=== PATIENT | female | born 1960 | race Caucasian/White ===

== ENCOUNTER 2020-04-26 10:14 | Outpatient (REF) | payer OTHER, SELFPAY ==
--- NOTE | 2020-04-26 | MM_ITS ---
EXAMINATION: MM SCREENING DIGITAL BREAST TOMOSYNTHESIS, BILATERAL CLINICAL INFORMATION: Screening. Asymptomatic. The lifetime risk of breast cancer based on the Tyrer-Cuzick Model is 10%. COMPARISON: Mammography: 03/09/2019, 10/08/2017 TECHNIQUE: Digital breast tomosynthesis is performed in both the craniocaudal and mediolateral oblique views along with computer-aided detection (CAD). Synthesized 2D images are generated from the tomosynthesis. FINDINGS: There are scattered areas of fibroglandular density (ACR BI-RADS breast composition Category b). There are no significant masses, abnormal calcifications, or other abnormalities. There are dermal calcifications at the bilateral posterior medial breasts. MM/MM tomosynthesis screening BI IMPRESSION: No mammographic evidence of malignancy. ASSESSMENT: BI-RADS 2: Benign RECOMMENDATION: Routine annual mammography screening. This patient's information was entered into a reminder system with a target due date for their next mammogram.
== END 2020-04-26 10:15 | disposition home or self-care (01) ==
LOC: HO.MAMMO 10:14
PROVIDERS: Visit Provider Internal Medicine
DX: Z12.31 Encounter for screening mammogram for malignant neoplasm of breast (principal)
CPT/HCPCS: 77063; 77067

== ENCOUNTER 2021-06-27 16:20 | Outpatient (REF) | payer OTHER, SELFPAY ==
--- NOTE | ~2021-06-27 | MM_ITS ---
EXAMINATION: MM SCREENING DIGITAL BREAST TOMOSYNTHESIS, BILATERAL CLINICAL INFORMATION: Screening. Asymptomatic. The lifetime risk of breast cancer based on the Tyrer-Cuzick Model is 9%. COMPARISON: Mammography: 04/26/2020, 03/09/2019, 10/18/2017 TECHNIQUE: Digital breast tomosynthesis is performed in both the craniocaudal and mediolateral oblique views along with computer-aided detection (CAD). Synthesized 2D images are generated from the tomosynthesis. Additional bilateral CC views are provided. FINDINGS: There are scattered areas of fibroglandular density (ACR BI-RADS breast composition Category b). There are no significant masses, abnormal calcifications, or other abnormalities. Parenchymal pattern is similar to prior studies. There is no developing density or architectural abnormality. The axilla and skin contours are unremarkable. No significant changes. MM/MM tomosynthesis screening BI IMPRESSION: No mammographic evidence of malignancy. ASSESSMENT: BI-RADS 1: Negative RECOMMENDATION: Routine annual mammography screening. This patient's information was entered into a reminder system with a target due date for their next mammogram.
== END 2021-06-27 16:21 | disposition home or self-care (01) ==
LOC: HO.MAMMO 16:20
PROVIDERS: Visit Provider Internal Medicine
DX: Z12.31 Encounter for screening mammogram for malignant neoplasm of breast (principal)
CPT/HCPCS: 77063; 77067

== ENCOUNTER 2022-09-20 06:32 | Outpatient (REF) | payer OTHER, SELFPAY ==
[2022-09-20 06:44] LABS: MANUAL DIFF FLAG NO
[2022-09-20 07:33] LABS: Eosinophils Absolute Auto 0.2 X10*3/uL (0.0-0.4); Eosinophils Percent Auto 5.4 % (0-4); Hematocrit 36.6 % (37.0-47.0); Hemoglobin 12.3 g/dl (12.0-16.0); Imm Gran Abs Auto 0.02 X10*3/uL (0.00-0.03); Imm Gran Pct Auto 0.5 % (0.0-0.4); Lymphocytes Absolute Auto 1.7 X10*3/uL (1.2-4.9); Lymphocytes Percent Auto 41.6 % (20-40); Mean Corpuscular HGB Conc 33.6 g/dl (31.0-35.0); Mean Corpuscular Hemoglobin 30.4 pg (27.0-33.0); Mean Corpuscular Volume 90.6 fL (80.0-98.0); Mean Platelet Volume 9.2 fL (9.4-12.3); Monocytes Absolute Auto 0.5 X10*3/uL (0.1-1.2); Neutrophils Absolute Auto 1.7 x10*3/uL (2.0-8.3); Neutrophils Percent Auto 40.5 % (45-73); Platelet Count 334 X10*3/uL (160-400); Red Blood Count 4.04 X10*6/uL (4.20-5.50); Red Cell Distribution Width 12.9 % (11.0-16.0); White Blood Count 4.1 X10*3/uL (4.8-10.8)
[2022-09-20 08:06] LABS: Alanine Aminotransferase 32 U/L (0-31); Albumin Level 4.2 g/dL (3.5-5.0); Alkaline Phosphatase 89 U/L (39-117); Anion Gap 10 (12-20); Aspartate Amino Transferase 43 U/L (5-31); Bilirubin Total 0.5 mg/dL (0.0-1.0); Blood Urea Nitrogen 14 mg/dL (9-16); Calcium 9.4 mg/dL (8.4-10.2); Carbon Dioxide 28 mmol/L (22-29); Chloride 103 mmol/L (96-108); Cholesterol 226 mg/dL; Estimated Glomerular Filt Rate > 60; Glucose Random 91 mg/dL (60-115); HDL Cholesterol 95 mg/dL; LDL Cholesterol Calculated 124 mg/dl; Potassium 5.3 mmol/L (3.3-5.1); Sodium 136 mmol/L (135-145); Total Protein 7.1 g/dL (6.5-8.0); Triglycerides 38 mg/dL
== END 2022-09-20 06:33 | disposition home or self-care (01) ==
LOC: HO.LAB 06:32
PROVIDERS: PCP Internal Medicine; Visit Provider Physician Assistant
DX: Z00.00 Encounter for general adult medical examination without abnormal findings (principal)
CPT/HCPCS: 36415; 80053; 80061; 85025

== ENCOUNTER 2022-09-25 06:16 | Outpatient (REF) | payer OTHER, SELFPAY ==
[2022-09-25 08:41] LABS: Iron 97 mcg/dL (30-160); Percent Iron Saturation 37 % (15-50); Total Iron Binding Capacity 265 mcg/dL (228-428); Unsaturated Iron Binding 168 ug/dL
[2022-09-25 09:08] LABS: Ferritin 105 ng/mL (10-250); Folate 16.5 ng/mL (> or = 4.0); Vitamin B12 497 pg/mL (200-900)
== END 2022-09-25 06:17 | disposition home or self-care (01) ==
LOC: HO.LAB 06:16
PROVIDERS: Physician Assistant; PCP Internal Medicine; Visit Provider Internal Medicine
DX: D64.9 Anemia, unspecified (principal)
CPT/HCPCS: 36415; 82607; 82728; 82746; 83540

== ENCOUNTER 2022-10-11 07:16 | Outpatient (REF) | payer OTHER, SELFPAY ==
--- NOTE | ~2022-10-11 | MM_ITS ---
EXAMINATION: MM SCREENING DIGITAL BREAST TOMOSYNTHESIS, BILATERAL CLINICAL INFORMATION: Screening. Asymptomatic. The lifetime risk of breast cancer based on the Tyrer-Cuzick Model is 7%. COMPARISON: Mammography: June 25, 2021 and studies dating back to February 01, 2014 TECHNIQUE: Digital breast tomosynthesis is performed in both the craniocaudal and mediolateral oblique views along with computer-aided detection (CAD). Synthesized 2D images are generated from the tomosynthesis. FINDINGS: There are scattered areas of fibroglandular density (ACR BI-RADS breast composition Category b). There are no significant masses, abnormal calcifications, or other abnormalities. MM/MM tomosynthesis screening BI IMPRESSION: No significant changes from prior exam. ASSESSMENT: BI-RADS 1: Negative RECOMMENDATION: Routine annual mammography screening. This patient's information was entered into a reminder system with a target due date for their next mammogram.
== END 2022-10-11 07:17 | disposition home or self-care (01) ==
LOC: HO.MAMMO 07:16
PROVIDERS: PCP Internal Medicine; Visit Provider Internal Medicine
DX: Z12.31 Encounter for screening mammogram for malignant neoplasm of breast (principal)
CPT/HCPCS: 77063; 77067

== ENCOUNTER 2023-11-13 08:02 | Outpatient (REF) | payer OTHER, SELFPAY | END 2023-11-13 08:03 | disposition home or self-care (01) | LOC: HO.MAMMO 08:02 | PROVIDERS: PCP Internal Medicine; Visit Provider Internal Medicine | DX: Z12.31 Encounter for screening mammogram for malignant neoplasm of breast (principal) | CPT/HCPCS: 77063; 77067 ==

== ENCOUNTER → 2023-11-13 08:15 | Outpatient (BNV) | payer OTHER, SELFPAY | PROVIDERS: PCP Internal Medicine; Visit Provider Radiology Diagnostic Radiology | DX: Z12.31 Encounter for screening mammogram for malignant neoplasm of breast (principal) | CPT/HCPCS: 77063; 77067 ==

== ENCOUNTER 2024-04-08 06:28 | Outpatient (REF) | payer OTHER, SELFPAY ==
[2024-04-08 06:45] LABS: MANUAL DIFF FLAG NO
[2024-04-08 07:30] LABS: Basophils Percent Auto 0.9 % (0-2); Eosinophils Absolute Auto 0.4 X10*3/uL (0.0-0.4); Eosinophils Percent Auto 8.3 % (0-4); Hematocrit 38.6 % (37.0-47.0); Hemoglobin 12.9 g/dl (12.0-16.0); Imm Gran Abs Auto 0.01 X10*3/uL (0.00-0.03); Imm Gran Pct Auto 0.2 % (0.0-0.4); Lymphocytes Absolute Auto 1.8 X10*3/uL (1.2-4.9); Lymphocytes Percent Auto 41.3 % (20-40); Mean Corpuscular HGB Conc 33.4 g/dl (31.0-35.0); Mean Corpuscular Hemoglobin 30.2 pg (27.0-33.0); Mean Corpuscular Volume 90.4 fL (80.0-98.0); Mean Platelet Volume 9.4 fL (9.4-12.3); Monocytes Absolute Auto 0.4 X10*3/uL (0.1-1.2); Neutrophils Absolute Auto 1.8 x10*3/uL (2.0-8.3); Neutrophils Percent Auto 40.3 % (45-73); Platelet Count 345 X10*3/uL (160-400); Red Blood Count 4.27 X10*6/uL (4.20-5.50); Red Cell Distribution Width 12.8 % (11.0-16.0); White Blood Count 4.5 X10*3/uL (4.8-10.8)
[2024-04-08 07:38] LABS: Estimated Average Glucose 111 mg/dL; Hemoglobin A1C 126.6143 umol/L; Hemoglobin A1c % 5.5 % (<6.0); Total Hemoglobin (HGBA1C) 3443.9718 umol/L
[2024-04-08 07:58] LABS: Alanine Aminotransferase 50 U/L (0-31); Albumin Level 4.2 g/dL (3.5-5.0); Alkaline Phosphatase 107 U/L (39-117); Anion Gap 11 (12-20); Aspartate Amino Transferase 48 U/L (5-31); Bilirubin Total 0.4 mg/dL (0.0-1.0); Blood Urea Nitrogen 11 mg/dL (9-16); Calcium 9.3 mg/dL (8.4-10.2); Carbon Dioxide 26 mmol/L (22-29); Chloride 104 mmol/L (96-108); Cholesterol 217 mg/dL (<200); Estimated Glomerular Filt Rate > 60; Glucose Random 93 mg/dL (60-115); HDL Cholesterol 77 mg/dL (>40); LDL Cholesterol Calculated 126 mg/dL (<100); Potassium 4.2 mmol/L (3.3-5.1); Sodium 137 mmol/L (135-145); Total Protein 7.7 g/dL (6.5-8.0); Triglycerides 70 mg/dL (<150)
[2024-04-08 08:17] LABS: Free T4 (Free Thyroxine) 0.77 ng/dL (0.71-1.85); Thyroid Stimulating Hormone 2.93 uIU/mL (0.32-4.0); Vitamin D 25-OH Total 80.1 ng/mL (>30)
== END 2024-04-08 06:29 | disposition home or self-care (01) ==
LOC: HO.LAB 06:28
PROVIDERS: PCP Internal Medicine; Visit Provider Physician Assistant
DX: Z00.00 Encounter for general adult medical examination without abnormal findings (principal); Z13.1 Encounter for screening for diabetes mellitus
CPT/HCPCS: 36415; 80053; 80061; 82306; 83036; 84439; 84443; 85025

== ENCOUNTER 2024-12-29 07:29 | Outpatient (REF) | payer OTHER, SELFPAY ==
--- OUTSIDE RECORDS SUMMARY | 2024-12-29 07:31 | XMS_ITS | Data Portability ---
Author Organization [facility] Telehealth Patient Home Address [address] [place] [address] Assessment Encounter Date Assessment Date Assessment LastModified by Organization Details LastModified Time 09/29/2019 09/29/2019 discussed exercise habits, increasing strength resistance and cardio, watching her diet and excluding certain foods and following the mediterrenean diet [email or web address] Not available 09/29/2019 09:26:47 Plan of Treatment Reminders Order Date Submit Date Provider Last Modified By Organization Details Last Modified Time Details Appointments ANNUAL EXAM 2024 09:00A M ANTOINE OSWALD Not available Not available Not available Lab CMP, serum or plasma 2023 [facility], [address] [place] [address], [id number], 04/09/2024 11:53:04 CBC w/ auto diff 2023 024 [facility], [address] [place] [address], [id number], 04/07/2024 16:08:32 lipid panel, blood 2023 024 [facility], [address] [place] [address], [id number], 04/07/2024 16:08:32 vitamin D, 25-hydrox y, total, serum 2023 024 [facility], [address] [place] [address], [id number], 04/07/2024 16:08:32 TSH + free T4, serum 2023 024 [facility], [address] [place] [address], [id number], 04/07/2024 16:08:32 hemoglobi n A1c, QN, blood 2023 024 [facility], [address] [place] [address], [id number], 04/07/2024 16:08:32 CBC w/ auto diff 2022 023 [facility], [address] [place] [address], [id number], 09/19/2022 15:55:16 CMP, serum or plasma 2022 023 [facility], [address] [place] [address], [id number], 09/20/2022 12:40:21 lipid panel, blood 2022 023 [facility], [address] [place] [address], [id number], 09/19/2022 16:20:39 urinalysi s, dipstick 2019 020 [facility], [address] [facility], [address], [place], [address], 09/29/2019 09:26:49 CMP, serum or plasma 2019 020 [facility], [address] [place] [address], [id number], 09/29/2019 23:16:31 CBC w/ auto diff 2019 020 [facility], [address] [place] [address], [id number], 09/29/2019 23:16:31 lipid panel, blood 2019 020 [facility], [address] [place] [address], [place], [address], 09/29/2019 23:16:31 Referral None recorded. Procedures None recorded. Surgeries None recorded. Imaging None recorded. Medication Orders acyclovir 400 mg tablet 2023 024 [id number], [address] [facility], [place], [address], 04/07/2024 16:01:33 Patient TargetsNo targets recorded. Patient InstructionsNo instructions recorded. Reason for Referral None Reported. Results Created Date Observation Date Name Description Value Unit Range Abnormal Flag Note LastModifiedBy Organization Detail LastModifiedTime 09/29/19 20 09/29/2019 urina lysis , dipst ick Leukocytes Trace Not Available [address], [place], [address], 09/29/2019 09:04:18 09/29/19 20 09/29/2019 urina lysis , dipst ick Nitrite negati ve Not Available [address], [place], [address], 09/29/2019 09:04:18 09/29/19 20 09/29/2019 urina lysis , dipst ick Urobilinogen .2 Not Available [facility] [address], [place], [address], 09/29/2019 09:04:18 09/29/19 20 09/29/2019 urina lysis , dipst ick Protein Negati ve Not Available [address], [place], [address], 09/29/2019 09:04:18 09/29/19 20 09/29/2019 urina lysis , dipst ick pH 7.0 Not Available [facility] [address], [place], [address], 09/29/2019 09:04:18 09/29/19 20 09/29/2019 urina lysis , dipst ick Blood Modera te Not Available [facility] [address] [facility] [address], [place], [address], 09/29/2019 09:04:18 09/29/19 20 09/29/2019 urina lysis , dipst ick Specific Empire 1.005 Not Available [facility] [address] [address] [facility] [address], [place], [address], 09/29/2019 09:04:18 09/29/19 20 09/29/2019 urina lysis , dipst ick Ketone Negati ve Not Available [facility] [address], [place], [address], 09/29/2019 09:04:18 09/29/19 20 09/29/2019 urina lysis , dipst ick Bilirubin Negati ve Not Available [facility] [address], [place], [address], 09/29/2019 09:04:18 09/29/19 20 09/29/2019 urina lysis , dipst ick Glucose Negati ve Not Available [facility] [address], [place], [address], 09/29/2019 09:04:18 09/29/19 20 09/29/2019 urina lysis , dipst ick Appearance Clear Not Available [facility] [address], [place], [address], 09/29/2019 09:04:18 09/29/19 20 09/29/2019 urina lysis , dipst ick Color Yellow Not Available [facility] [address] [facility] [address], [place], [address], 09/29/2019 09:04:18 04/27/20 20 04/26/2020 MAMMO , diagn ostic , digit al, bilat eral No observ ation record ed. [email or web address] [address] [place], [address], 04/27/2020 09:44:56 06/28/19 22 06/27/2021 MAMMO , scree steven, digit al, bilat eral No observ ation record ed. [address] [place], [address], 06/28/2021 12:00:43 10/13/19 23 10/11/2022 MAMMO , scree steven, digit al, bilat eral No observ ation record ed. [address] [place], [address], 04/07/2024 15:45:02 12/10/19 24 11/13/2023 MAMMO , scree steven, digit al, bilat eral No observ ation record ed. [address] [place], [address], 04/07/2024 15:45:02 Result Notes None recorded. Problems Name Problem SNOMED Code Status Onset Date Resolution Date Notes Provider Name and Address Organization Details Recorded Time Anemia 482096121 Active 2022 ANTOINE OSWALD [address] [place] [address], [address], [facility] 3 15:41:34 Herpes labialis 2866853 Active 2023 ANTOINE OSWALD [address] [place] [address], [address], [facility] 4 15:51:26 Problem Notes None recorded. Medical Equipment None Reported. Allergies No known drug allergies Medications Name Sig Start Date Stop Date Status Note LastModified by Organization Details LastModified Time amoxicillin 500 mg capsule TAKE 1 CAPSULE BY MOUTH 3 TIMES A DAY FOR 8 DAYS 09/19 completed Not Available Not Available Not Available lysine 1,000 mg tablet Take by oral route. 2023 active Not Available Not Available Not Avai lable acyclovir 400 mg tablet TAKE 1 TABLET BY MOUTH TWICE A DAY DIRECTED 2024 active Not Available Not Available Not Avai lable triamcinolo ne acetonide 0.1 % topical cream 09/19 completed Not Available Not Available Not Available desonide 0.05 % lotion 09/28 completed Not Available Not Available Not Available metoprolol succinate ER 25 mg tablet,exte nded release 24 hr Take 1 tablet every day by oral route. 09/19 completed Not Available Not Available Not Available One Daily daily 09/19 completed Not Available Not Available Not Available Vitamin D3 TAKE ONE PO QD active Not Available Not Available No t Available Centrum active Not Available Not Avail able Not Available Shingrix (PF) 50 mcg/0.5 mL intramuscul ar suspension, kit 04/04 completed Not Available Not Available Not Available Fluzone [employer] (PF) 60 mcg (15 mcg x 4)/0.5 mL IM syringe 09/28 completed Not Available Not Available Not Available Estroven Complete Menopause Relief 4 mg tablet Take by oral route. 04/04 completed Not Available Not Available Not Available Fluzone Quad (PF) 60 mcg (15 mcg x 4)/0.5 mL IM syringe 04/04 completed Not Available Not Available Not Available BinaxNOW COVID-19 Ag Self Test kit TEST DIRECTED TODAY 09/19 completed Not Available Not Available Not Available Vitals Date Recorded Body height Body mass index (BMI) Body weight Heart rate Oxygen saturation Oxygen saturation in Arterial blood by Pulse oximetry Systolic And Diastolic Provider Name and Address Organization Details Last Updated DateTime 3 160.02 cm 6.2 kg/m2 55519.7 3 g 80 /min 98 % 98 % 118/64 mm[Hg] ANTOINE OSWALD [address] [place], [address] [place] [address] Internal [facility] 3 15:32:50 Date Recorded Body height Body mass index (BMI) Body weight Heart rate Oxygen saturation Oxygen saturation in Arterial blood by Pulse oximetry Systolic And Diastolic Provider Name and Address Organization Details Last Updated DateTime 0 158.75 cm 29 kg/m2 29263.0 9 g 90 /min 99 % 99 % 120/70 mm[Hg] Kristen Roland [facility] 0 09:08:04 Date Recorded Body height Heart rate Oxygen saturation Oxygen saturation in Arterial blood by Pulse oximetry Systolic And Diastolic Provider Name and Address Organization Details Last Updated DateTime 0 158.75 cm 72 /min 99 % 99 % 136/90 mm[Hg] ANTOINE OSWALD [address] [place], [address], [facility] 0 16:01:19 Date Recorded Body height Body mass index (BMI) Body weight Heart rate Oxygen saturation Oxygen saturation in Arterial blood by Pulse oximetry Systolic And Diastolic Provider Name and Address Organization Details Last Updated DateTime 4 160.02 cm 26.5 kg/m2 98403.0 6 g 87 /min 98 % 98 % 128/78 mm[Hg] Shanthi Ackerman [facility] 4 15:35:32 Social History Question Answer Notes LastModified by Flywheel Details LastModified Time Tobacco Smoking Status Former Smoker Kristen caldwell [facility] 09/29/2019 08:51:51 What Was The Date Of Your Most Recent Tobacco Screening? 04/07/2024 [email or web address] Information not available 04/07/2024 Sex: Unknown Functional Status Question Answer Note LastModified by Flywheel Details LastModified Time Do you or have you ever used any other forms of tobacco or nicotine? No [email or web address] Information not available 09/19/2022 What is your level of alcohol consumption? Moderate 1-2 glasses per day [email or web address] Information not available 09/29/2019 Mental Status None recorded. Family History Nothing Reported. Medical History No medical history recorded. Gynecological HistoryNo gynecological history recorded. Obstetrics History GPAL:G 0 P 0 0 0 0 Immunizations Vaccine Type Date Status Note Provider Nam e and Address Organization Details Recorded Time Influenza, split virus, quadrivalent, preservative 9 completed Kristen caldwell [facility] 09/29/2019 09:03:33 Past Encounters Encounter ID Performer Location Encounter Start Date Encounter Closed Date Diagnosis/Indication Diagnosis SNOMED-CT Code Diagnosis ICD10 Code Diagnosis Note [id number] Ranjan Turner [facility] [address] [facility] [address] 09/29/2019 08:57:25 09/29/2019 09:34:10 Adult health examination 384166616 Z00.00 Active or passive immunization 885327605 Z23 [id number] Ranjan Turner [facility] [address] [facility] [address] 04/04/2020 15:55:55 04/04/2020 16:26:25 Essential hypertension 66409903 I10 will monitor her on metoprolol Anxiety 59801923 F41.9 due to personal life stress with and daughter recently in hospital she has been having a lot of anxiety causing her stress to increase [id number] Ranjan Turner [facility] [address] [facility] [address],[place] [address] 09/19/2022 15:24:15 09/19/2022 16:30:15 Active or passive immunization 501253359 Z23 up to date Adult heal th examination 486115830 Z00.00 BP is excellent [id number] Ranjan Turner [facility] [address] [facility], [place] [address] 04/07/2024 15:08:27 04/07/2024 16:51:07 Active or passive immunization 303018377 Z23 up to date Adult heal th examination 865831217 Z00.00 BP is excellent Depression screening 171 470539 Z13.31 SCREENING NEGATIVE Herpes labialis 0046573 B00.1 will start suppressio n dose for patient given reoccurrin g Health Concerns Section Related Observation LastModified by Organization Detai ls LastModified Time None Recorded Concern Status LastModified by Organization Details LastModified Time None Recorded Advance Directives Directive None Recorded Payers Insurance Date Sequence Insurance Name Policy Number Policy Valadez Covered Member ID Valadez Member ID Guarantor Name 04/04/[address] [place] [address] [id number] Lainey Caro [id number] Lainey Caro Notes Date Note Type Note Provider Name a ga Address Organization Details Recorded Time 0 text/html Annual WellnessReported bypatient.Diet and Nutrition:healthy diet Fracture Risk:no history of fractures Physical Activity:good physical condition Additional Lifestyle Factors:no tobacco use; drinks alcohol (mild-moderate) (one glass of wine per night); former smoker - 30 years ago Depression Risk:no history of mood disorders Hearing:no loss of hearing Vision:no vision problems BP 120/70 which is excellent ANTOINE OSWALD [address] [place] [address], [address], [facility] 09/29/2019 09:28:18 0 text/html BP f/u the patient took her metoprolol 25 mg for her BP the patient reports that she has had some numbness in her face the patient reports her recorded BP readings: 115/78 133/94 128/88 102/72 105/78 138/92 will continue on metoprolol for the time being at 25 as her best reading were with the metoprolol on board will continue to monitor if dips to low she knows to call me facial numbness subsided with her BP coming back down will keep me updated no fever, no sob, no cough, no abdominal pain, no chest pain, no fatigue, no n/v/d ANTOINE OSWALD [address] [place] [address], [address], [facility] 04/04/2020 16:20:44 3 text/html Annual WellnessReported bypatient.Diet and Nutrition:healthy diet; discussed vitamin and supplement use; discussed portion control; discussed maintaining calcium balance; discussed diet improvement Fracture Risk:no history of fractures; no recent explained fracture; no sudden unexplained fractures; no previous musculoskeletal injuries Physical Activity:exercises on a regular basis; recent increase in physical activity; good physical condition; discussed weightbearing activities; discussed exercise habits Additional Lifestyle Factors:no tobacco use; drinks alcohol (mild-moderate) Depression Risk:never feels sad, empty, or tearful; no loss of interest in activities; no significant changes in weight; no sleep disturbances or insomnia; no agitation; no loss of energy; no feelings of worthlessness or guilt; no thoughts of suicide; no history of depression; no history of mood disorders Hearing:no loss of hearing Vision:no vision problems ANTOINE OSWALD [address] [place], [address], [facility] 09/19/2022 16:19:57 text/html Annual WellnessReported bypatient.Diet and Nutrition:healthy diet; discussed vitamin and supplement use; discussed portion control; discussed maintaining calcium balance; discussed diet improvement Fracture Risk:no history of fractures; no recent explained fracture; no sudden unexplained fractures; no previous musculoskeletal injuries Physical Activity:exercises on a regular basis; recent increase in physical activity; good physical condition; discussed weightbearing activities; discussed exercise habits Additional Lifestyle Factors:no tobacco use; drinks alcohol (mild-moderate) Depression Risk:never feels sad, empty, or tearful; no loss of interest in activities; no significant changes in weight; no sleep disturbances or insomnia; no agitation; no loss of energy; no feelings of worthlessness or guilt; no thoughts of suicide; no history of depression; no history of mood disorders Hearing:no loss of hearing Vision:no vision problems anemia: stabledoing well otherwise needs routine lab work ANTOINE OSWALD [address] [place], [address], [facility] 04/07/2024 16:13:13 OBGyn Episode No OBEpisode recorded.
== END 2024-12-29 07:30 | disposition home or self-care (01) ==
LOC: HO.MAMMO 07:29
PROVIDERS: PCP Internal Medicine; Visit Provider Internal Medicine
DX: Z12.31 Encounter for screening mammogram for malignant neoplasm of breast (principal)
CPT/HCPCS: 77063; 77067

== ENCOUNTER → 2024-12-29 07:30 | Outpatient (BNV) | payer OTHER, SELFPAY | PROVIDERS: PCP Internal Medicine; Visit Provider Internal Medicine | DX: Z12.31 Encounter for screening mammogram for malignant neoplasm of breast (principal) | CPT/HCPCS: 77063; 77067 ==

== ENCOUNTER 2025-04-01 12:44 | Outpatient (AMB) | payer OTHER, SELFPAY ==
--- NOTE | 2025-04-01 12:58 | A.OFFVIS_ITS ---
Vital Signs 04/01/25 13:06 Height 5 ft 3 in Weight 150 lb 1 oz BMI 26.6 BP 139/84 Blood Pressure Location Rt brachial Position Sitting Pulse 84 Intake Visit Reasons: 10 year colostomy screening Intake Note: Patient presents for 10 year recall colonoscopy. Pt c/o; denies rectal bleeding, pain, or constipation, last colonoscopy was over 10 years ago 05/2014. Supervisor Of Guidance And Testing Required: No Accompanied by: Self / Same As Patient Allergies No Known Allergies Allergy (Unverified 04/01/25 13:07) Medication List - Last Reconciled 04/01/25 by Dick Alberts MD [id number] K-lut 8 mg iron-400 mcg-50 mcg (Centrum Silver Women) 1 tab PO DAILY HPI HPI 10 year colostomy screening: Details: 64 year old female referred for colonoscopy screening. She says her last colonoscopy was about [address] Jon Felton. She says he had a small polyp at that time that was removed. She denies GI complaints. She does state that she had some changes in her bowel habits starting from last year when she was going a lot of stress. She says that this has resolved once she made some changes with her diet. She denies any family history of colon cancer. [facility] Medical History (Updated 04/01/25 @ 13:13 by Dick Alberts MD) Colon cancer screening Surgical History (Updated 04/01/25 @ 13:10 by JAVY Jaime) No pertinent past surgical history Social History (Updated 04/01/25 @ 13:10 by JAVY Jaime) Unable to assess alcohol history related to: Unknown Patient Tobacco Use Status: Tobacco use Unknown Review of Systems Const Denies chills and Denies fever(s) Card Denies chest pain, Denies dyspnea and Denies dyspnea on exertion Resp Denies cough, Denies dyspnea and Denies dyspnea on exertion GI Denies hematochezia and Denies change in bowel habits Denies hematuria Musc Denies back pain and Denies limited range of motion Neuro Denies focal weakness and Denies convulsions Psych Denies depression and Denies mood swings Physical Exam Vital Signs: Last Vital Signs Pulse 84 04/01/25 13:06 BP 139/84 04/01/25 13:06 BMI result Body Mass Index 26.6 Const General: comfortable and no acute distress Orientation/consciousness: patient oriented x3 Neck Neck: Yes no lymphadenopathy Resp Auscultation: clear to auscultation bilaterally Cardio Rhythm: regular rhythm GI Palpation (GI): Soft to palpation, nontender and no guarding Neuro General: patient oriented x3 Assessment & Plan Assessment & Plan (1) Colon cancer screening: Code(s): Z12.11 - Encounter for screening for malignant neoplasm of colon Category: Medical Plan: I explained to her the technique of colonoscopy for screening. I reviewed the risks including but not limited to bleeding and perforation, as well as the benefits and alternatives. She understands and agrees to proceed. Coding Level of Care Code New Pt Level 3 (48178) Diagnoses Colon cancer screening Z12.11
[2025-04-01 13:06] VITALS: BP 139/84; PULSE 84; BMI 26.6
--- OUTSIDE RECORDS SUMMARY | 2025-04-01 15:51 | XMS_ITS | Data Portability ---
Author Organization [facility] Telehealth Patient Home Address [address] [place] [address] Assessment Encounter Date Assessment Date Assessment LastModified [...] available Lab CMP, serum or plasma 2023 [facility], [address] [place] [address], [id number], 04/09/2024 11:53:04 CBC w/ auto diff 2023 024 [facility], [address] [place] [address], [id number], 04/07/2024 16:08:32 lipid panel, blood 2023 024 [facility], [address] [place] [address], [id number], 04/07/2024 16:08:32 vitamin D, 25-hydrox y, total, serum 2023 024 [facility], [address] [place] [address], [id number], 04/07/2024 16:08:32 TSH + free T4, serum 2023 024 [facility], [address] [place] [address], [id number], 04/07/2024 16:08:32 hemoglobi n A1c, QN, blood 2023 024 [facility], [address] [place] [address], [id number], 04/07/2024 16:08:32 CBC w/ auto diff 2022 023 [facility], [address] [place] [address], [id number], 09/19/2022 15:55:16 CMP, serum or plasma 2022 023 [facility], [address] [place] [address], [id number], 09/20/2022 12:40:21 lipid panel, blood 2022 023 [facility], [address] [place] [address], [id number], 09/19/2022 16:20:39 urinalysi s, dipstick 2019 020 [facility], [address] [facility], [address], [place], [address], 09/29/2019 09:26:49 CMP, serum or plasma 2019 020 [facility], [address] [place] [address], [id number], 09/29/2019 23:16:31 CBC w/ auto diff 2019 020 [facility], [address] [place] [address], [id number], 09/29/2019 23:16:31 lipid panel, blood 2019 020 [facility], [address] [place] [address], [place], [id number], 09/29/2019 23:16:31 Referral None recorded. Procedures None recorded. Surgeries None recorded. Imaging None recorded. Medication Orders acyclovir 400 mg tablet 2023 024 [id number], [address] [facility], [place], [address], 04/07/2024 16:01:33 Patient TargetsNo targets recorded. Patient InstructionsNo instructions recorded. Reason for Referral None Reported. Results Created Date Observation Date Name Description Value Unit Range Abnormal Flag Note LastModifiedBy Organization Detail LastModifiedTime 09/29/19 20 09/29/2019 urina lysis , dipst ick Leukocytes Trace Not Available [address], [place], [address], 09/29/2019 09:04:18 09/29/19 20 09/29/2019 urina lysis , dipst ick Nitrite negati ve Not Available [address], [place], [address], 09/29/2019 09:04:18 09/29/19 20 09/29/2019 urina lysis , dipst ick Urobilinogen .2 Not Available [facility] [address], [place], [address], 09/29/2019 09:04:18 09/29/19 20 09/29/2019 urina lysis , dipst ick Protein Negati ve Not Available [address], [place], [address], 09/29/2019 09:04:18 09/29/19 20 09/29/2019 urina lysis , dipst ick pH 7.0 Not Available [facility] [address], [place], [phone], 09/29/2019 09:04:18 09/29/19 20 09/29/2019 urina lysis , dipst ick Blood Modera te Not Available [facility] [address] [facility] [address], [place], [address], 09/29/2019 09:04:18 09/29/19 20 09/29/2019 urina lysis , dipst ick Specific [place] 1.005 Not Available [facility] [address], [place], [id number], 09/29/2019 09:04:18 09/29/19 20 09/29/2019 urina lysis , dipst ick Ketone Negati ve Not Available [facility] [address], [place], [id number], 09/29/2019 09:04:18 09/29/19 20 09/29/2019 urina lysis , dipst ick Bilirubin Negati ve Not Available [facility] [address], [place], [id number], 09/29/2019 09:04:18 09/29/19 20 09/29/2019 urina lysis , dipst ick Glucose Negati ve Not Available [facility] [address], [place], [address], 09/29/2019 09:04:18 09/29/19 20 09/29/2019 urina lysis , dipst ick Appearance Clear Not Available [facility] [address], [place], [address], 09/29/2019 09:04:18 09/29/19 20 09/29/2019 urina lysis , dipst ick Color Yellow Not Available [facility] [address] [address], [place], [address], 09/29/2019 09:04:18 04/27/20 20 04/26/2020 MAMMO , diagn ostic , digit al, bilat eral No observ ation record ed. [email or web address] [address] [place], [address], 04/27/2020 09:44:56 06/28/19 22 06/27/2021 MAMMO , scree steven, digit al, bilat eral No observ ation record ed. [address] [place], [address], 06/28/2021 12:00:43 10/13/19 23 10/11/2022 MAMMO , scree steven, digit al, bilat eral No observ ation record ed. [address] [place], [address], 04/07/2024 15:45:02 12/10/19 24 11/13/2023 MAMMO , scree steven, digit al, bilat eral No observ ation record ed. [address] [place], [address], 04/07/2024 15:45:02 01/06/20 25 12/29/2024 MAMMO , scree steven, digit al, bilat eral No observ ation record ed. [email or web address] [address] [place], [address], 01/05/2025 13:34:50 Result Notes None recorded. Problems Name Problem SNOMED Code Status Onset Date Resolution Date Notes Provider Name and Address Organization Details Recorded Time Anemia 062840572 Active 2022 ANTOINE OSWALD [address] [place], [address], [facility] [place], operated [facility] 15:41:34 Herpes labialis 8589245 Active 2023 ANTOINE OSWALD [address] [place], [address], [facility] [place], operated [facility] 4 15:51:26 Problem Notes None recorded. Procedures Surgical History Date Name Laterality Status Provider Name and Address Organization Details Recorded Time 5 Most Recent Mammogram completed Shanthi Ackerman [facility] 01/05/2025 13:34:28 Imaging Results None recorded. Procedure Notes None recorded. Medical Equipment None Reported. [...] Ag Self Test kit TEST DIRECTED TODAY 04/12 /2023 completed Not Available Not Available Not Available Vitals Date Recorded Body height Body mass index (BMI) Body weight Heart rate Oxygen saturation Oxygen saturation in Arterial blood by Pulse oximetry Systolic And Diastolic Provider Name and Address Organization Details Last Updated DateTime 3 160.02 cm 6.2 kg/m2 25162.7 3 g 80 /min 98 % 98 % 118/64 mm[Hg] ANTOINE OSWALD [address] [place], [address] [place] [address] 3 15:32:50 Date Recorded Body height Body mass index (BMI) Body weight Heart rate Oxygen saturation Oxygen saturation in Arterial blood by Pulse oximetry Systolic And Diastolic Provider Name and Address Organization Details Last Updated DateTime 0 158.75 cm 29 kg/m2 26403.0 9 g 90 /min 99 % 99 % 120/70 mm[Hg] Kristen Roland [facility] 0 09:08:04 Date Recorded Body height Heart rate Oxygen saturation Oxygen saturation in Arterial blood by Pulse oximetry Systolic And Diastolic Provider Name and Address Organization Details Last Updated DateTime 0 158.75 cm 72 /min 99 % 99 % 136/90 mm[Hg] ANTOINE OSWALD [address] [place], [address] [place] [address] 0 16:01:19 Date Recorded Body height Body mass index (BMI) Body weight Heart rate Oxygen saturation Oxygen saturation in Arterial blood by Pulse oximetry Systolic And Diastolic Provider Name and Address Organization Details Last Updated DateTime 4 160.02 cm 26.5 kg/m2 17158.0 6 g 87 /min 98 % 98 % 128/78 mm[Hg] Shanthi Ackerman [facility] 4 15:35:32 Social History Question Answer Notes LastModified by [employer] Details LastModified Time Tobacco Smoking Status Former Smoker Kristen Roland [facility] 09/29/2019 08:51:51 What Was The Date Of Your Most Recent Tobacco Screening? 04/07/2024 [email or web address] Information not available 04/07/2024 Sex: Unknown Functional Status Question Answer Note LastModified by Organizat ion Details LastModified Time Do you or have you ever used any other forms of tobacco or nicotine? No [email or web address] Information not available 09/19/2022 What is your level of alcohol consumption? Moderate 1-2 glasses per day [email or web address] Information not available 09/29/2019 Mental Status None recorded. Family History Nothing Reported. Medical History No medical history recorded. Gynecological History Statement/Question Response Most Recent Mammogram 12/29/2024 Obstetrics History GPAL:G 0 P 0 0 0 0 Immunizations Vaccine Type Date Status Note Provider Nam e and Address Organization Details Recorded Time Influenza, split virus, quadrivalent, preservative 9 completed Kristen Roland [facility] 09/29/2019 09:03:33 Past Encounters Encounter ID Performer Location Encounter Start Date Encounter Closed Date Diagnosis/Indication Diagnosis SNOMED-CT Code Diagnosis ICD10 Code Diagnosis IMO Codes Diagnosis Note [id number] Ranjan Turner [facility] [address] [facility] [place] [address] 09/29/2019 08:57:25 09/29/2019 09:34:10 Adult health examination 871510058 Z00.00 Active or passive immunization 205952843 Z23 [id number] Ranjan Turner [facility] [address] [facility] [place] [address] 04/04/2020 15:55:55 04/04/2020 16:26:25 Essential hypertension 59861933 I10 will monitor her on metoprolol Anxiety 12730678 F41.9 due to personal life stress with and daughter recently in hospital she has been having a lot of anxiety causing her stress to increase [id number] Ranjan Turner DO [facility] [address] [facility] [address] 09/19/2022 15:24:15 09/19/2022 16:30:15 Active or passive immunization 799709168 Z23 up to date Adult heal th examination 849395505 Z00.00 BP is excellent [id number] Ranjan Turner [facility] [address] [facility] [place] [address] 04/07/2024 15:08:27 04/07/2024 16:51:07 Active or passive immunization 677570454 Z23 up to date Adult heal th examination 544784249 Z00.00 BP is excellent Depression screening 171 822306 Z13.31 SCREENING NEGATIVE Herpes labialis 0788111 B00.1 will start suppressio n dose for patient given reoccurrin g Health Concerns Section Related Observation LastModified by Organization Detai ls LastModified Time None Recorded Concern Status LastModified by Organization Details LastModified Time None Recorded Advance Directives Directive None Recorded Payers Insurance Date Sequence Insurance Name Policy Number Policy Valadez Covered Member ID Valadez Member ID Guarantor Name 04/04/2024 1 [facility] [id number] Lainey Ramye Gordo [id number] Lainey Ramey Gordo Notes Date Note Type Note Provider Name a nd Address Organization Details Recorded Time 0 text/html Annual WellnessReported by PatientSocial/Behavio ral HistoryFor diet and nutrition, patient reportshealthy diet. For fracture risk, patient reportsno history of fractures. For physical activity, patient reportsgood physical condition. For additional lifestyle factors, patient reportsno tobacco useanddrinks alcohol (mild-moderate) (one glass of wine per night)(former smoker - 30 years ago).Mental Status:For depression risk, patient reportsno history of mood disorders.Functional AbilityFor hearing, patient reportsno loss of hearing. For vision, patient reportsno vision problems. BP 120/70 which is excellent ANTOINE OSWALD [address] [place] [address], [address], [facility] [place], operated [facility] 09/29/2019 09:28:18 0 text/html ROS as noted in the HPI BP f/u the patient took her metoprolol [...] pain, no fatigue, no n/v/d ANTOINE OSWALD [address] [place] [address], [address], [facility] [place], operated [facility] 04/04/2020 16:20:44 3 text/html Annual WellnessReported by PatientSocial/Behavio ral HistoryFor diet and nutrition, patient reportshealthy diet,discussed vitamin and supplement use,discussed portion control,discussed maintaining calcium balance, anddiscussed diet improvement. For fracture risk, patient reportsno history of fractures,no recent explained fracture,no sudden unexplained fractures, andno previous musculoskeletal injuries. For physical activity, patient reportsexercises on a regular basis,recent increase in physical activity,good physical condition,discussed weightbearing activities, anddiscussed exercise habits. For additional lifestyle factors, patient reportsno tobacco useanddrinks alcohol (mild-moderate).Menta l Status:For depression risk, patient reportsnever feels sad, empty, or tearful,no loss of interest in activities,no significant changes in weight,no sleep disturbances or insomnia,no agitation,no loss of energy,no feelings of worthlessness or guilt,no thoughts of suicide,no history of depression, andno history of mood disorders.Functional AbilityFor hearing, patient reportsno loss of hearing. For vision, patient reportsno vision problems. ANTOINE OSWALD [address] [place], [address], [facility] [place], operated [facility] 09/19/2022 16:19:57 4 text/html Annual WellnessReported by PatientSocial/Behavio ral HistoryFor diet and nutrition, patient reportshealthy diet,discussed vitamin and supplement use,discussed portion control,discussed maintaining calcium balance, anddiscussed diet improvement. For fracture risk, patient reportsno history of fractures,no recent explained fracture,no sudden unexplained fractures, andno previous musculoskeletal injuries. For physical activity, patient reportsexercises on a regular basis,recent increase in physical activity,good physical condition,discussed weightbearing activities, anddiscussed exercise habits. For additional lifestyle factors, patient reportsno tobacco useanddrinks alcohol (mild-moderate).Menta l Status:For depression risk, patient reportsnever feels sad, empty, or tearful,no loss of interest in activities,no significant changes in weight,no sleep disturbances or insomnia,no agitation,no loss of energy,no feelings of worthlessness or guilt,no thoughts of suicide,no history of depression, andno history of mood disorders.Functional AbilityFor hearing, patient reportsno loss of hearing. For vision, patient reportsno vision problems.ROS as noted in the HPI anemia: stabledoing well otherwise needs routine lab work ANTOINE OSWALD [address] [place] [address], [place], [address], [facility] 04/07/2024 16:13:13 OBGyn Episode No OBEpisode recorded.
== END 2025-04-01 13:22 | disposition home or self-care (01) ==
LOC: HO.HGS 12:45
PROVIDERS: PCP Internal Medicine; Visit Provider Surgery
DX: Z12.11 Encounter for screening for malignant neoplasm of colon (principal)
CPT/HCPCS: 99203

== ENCOUNTER 2025-04-23 05:55 | Day surgery (SDC) | payer OTHER, SELFPAY ==
--- OUTSIDE RECORDS SUMMARY | 2025-04-16 16:16 | XMS_ITS | Data Portability ---
Author Organization [facility], Telehealth Patient Home Address [address] [place] [address] Assessment Encounter Date Assessment Date Assessment LastModified [...] available Lab CMP, serum or plasma 2023 [facility], [address] [place] [address], [id number], 04/09/2024 11:53:04 CBC w/ auto diff 2023 024 [facility], [address] [place] [address], [id number], 04/07/2024 16:08:32 lipid panel, blood 2023 024 [facility], [address] [place] [address], [id number], 04/07/2024 16:08:32 vitamin D, 25-hydrox y, total, serum 2023 024 [facility], [address] [place] [address], [id number], 04/07/2024 16:08:32 TSH + free T4, serum 2023 024 [facility], [address] [place] [address], [id number], 04/07/2024 16:08:32 hemoglobi n A1c, QN, blood 2023 024 [facility], [address] [place] [address], [id number], 04/07/2024 16:08:32 CBC w/ auto diff 2022 023 [facility], [address] [place] [address], [id number], 09/19/2022 15:55:16 CMP, serum or plasma 2022 023 [facility], [address] [place] [address], [id number], 09/20/2022 12:40:21 lipid panel, blood 2022 023 [facility], [address] [place] [address], [id number], 09/19/2022 16:20:39 urinalysi s, dipstick 2019 020 [facility], [address] [facility], [address], [place], [address], 09/29/2019 09:26:49 CMP, serum or plasma 2019 020 [facility], [address] [place] [address], [id number], 09/29/2019 23:16:31 CBC w/ auto diff 2019 020 [facility], [address] [place] [address], [id number], 09/29/2019 23:16:31 lipid panel, blood 2019 020 [facility], [address] [place] [address], [place], [address], 09/29/2019 23:16:31 Referral None recorded. Procedures None recorded. Surgeries None recorded. Imaging None recorded. Medication Orders acyclovir 400 mg tablet 2023 024 [id number], [address] [facility], [place], [address], 04/07/2024 16:01:33 Patient TargetsNo targets recorded. Patient InstructionsNo instructions recorded. Reason for Referral None Reported. Results Created Date Observation Date Name Description Value Unit Range Abnormal Flag Note LastModifiedBy Organization Detail LastModifiedTime 09/29/19 20 09/29/2019 urina lysis , dipst ick Leukocytes Trace Not Available [address], [place], [address], 09/29/2019 09:04:18 09/29/19 20 09/29/2019 urina lysis , dipst ick Nitrite negati ve Not Available [address], [place], [address], 09/29/2019 09:04:18 09/29/19 20 09/29/2019 urina lysis , dipst ick Urobilinogen .2 Not Available [facility] [address] [facility] [address], [place], [address], 09/29/2019 09:04:18 09/29/19 20 09/29/2019 urina lysis , dipst ick Protein Negati ve Not Available [address], [place], [address], 09/29/2019 09:04:18 09/29/19 20 09/29/2019 urina lysis , dipst ick pH 7.0 Not Available [facility] [address], [place], [address], 09/29/2019 09:04:18 09/29/19 20 09/29/2019 urina lysis , dipst ick Blood Modera te Not Available [facility] [address] [facility] [address], [place], [address], 09/29/2019 09:04:18 09/29/19 20 09/29/2019 urina lysis , dipst ick Specific Braman 1.005 Not Available [facility] [address] [facility] [address], [place], [address], 09/29/2019 09:04:18 09/29/19 20 09/29/2019 urina lysis , dipst ick Ketone Negati ve Not Available [facility] [address] [facility] [address], [place], [address], 09/29/2019 09:04:18 09/29/19 20 09/29/2019 urina lysis , dipst ick Bilirubin Negati ve Not Available [facility] [address] [facility] [address], [place], [address], 09/29/2019 09:04:18 09/29/19 20 09/29/2019 urina lysis , dipst ick Glucose Negati ve Not Available [facility] [address] [facility] [address], [place], [address], 09/29/2019 09:04:18 09/29/19 20 09/29/2019 urina lysis , dipst ick Appearance Clear Not Available [facility] [address] [facility] [address], [place], [address], 09/29/2019 09:04:18 09/29/19 20 09/29/2019 urina lysis , dipst ick Color Yellow Not Available [facility] [address] [facility] [address], [place], [address], 09/29/2019 09:04:18 04/27/20 20 04/26/2020 MAMMO , diagn ostic , digit al, bilat eral No observ ation record ed. [email or web address] [address] [place], [address], 04/27/2020 09:44:56 06/28/19 22 06/27/2021 MAMMO , scree steven, digit al, bilat eral No observ ation record ed. [address] [place], [address], 06/28/2021 12:00:43 10/13/19 23 10/11/2022 MAMMO , scree steven, digit al, bilat eral No observ ation record ed. [address] [place], [address], 04/07/2024 15:45:02 12/10/19 24 11/13/2023 MAMMO , scree steven, digit al, bilat eral No observ ation record ed. [address] [place], [address], 04/07/2024 15:45:02 01/06/20 25 12/29/2024 MAMMO , scree steven, digit al, bilat eral No observ ation record ed. [email or web address] [address] [place], [address], 01/05/2025 13:34:50 Result Notes None recorded. Problems Name Problem SNOMED Code Status Onset Date Resolution Date Notes Provider Name and Address Organization Details Recorded Time Anemia 744894965 Active 2022 NATOINE OSWALD [address] [place], [address], [facility] 15:41:34 Herpes labialis 9441699 Active 2023 ANTOINE OSWALD [address] [place], [address], [facility] 4 15:51:26 Problem Notes None recorded. Procedures Surgical History Date Name Laterality Status Provider Name and Address Organization Details Recorded Time 5 Most Recent Mammogram completed Shanthi Ackerman [facility] 01/05/2025 13:34:28 Imaging Results None [...] Updated DateTime 3 160.02 cm 6.2 kg/m2 60991.7 3 g 80 /min 98 % 98 % 118/64 mm[Hg] ANTOINE OSWALD [address] [place], [address] [place] [address] 3 15:32:50 Date Recorded Body height Body mass index (BMI) Body weight Heart rate Oxygen saturation Oxygen saturation in Arterial blood by Pulse oximetry Systolic And Diastolic Provider Name and Address Organization Details Last Updated DateTime 0 158.75 cm 29 kg/m2 88146.0 9 g 90 /min 99 % 99 % 120/70 mm[Hg] Kristen Roland [facility] 0 09:08:04 Date Recorded Body height Heart rate Oxygen saturation Oxygen saturation in Arterial blood by Pulse oximetry Systolic And Diastolic Provider Name and Address Organization Details Last Updated DateTime 0 158.75 cm 72 /min 99 % 99 % 136/90 mm[Hg] ANTOINE OSWALD [address] [place], [address] [place] [address] 0 16:01:19 Date Recorded Body height Body mass index (BMI) Body weight Heart rate Oxygen saturation Oxygen saturation in Arterial blood by Pulse oximetry Systolic And Diastolic Provider Name and Address Organization Details Last Updated DateTime 4 160.02 cm 26.5 kg/m2 25560.0 6 g 87 /min 98 % 98 % 128/78 mm[Hg] Shanthi Ackerman [facility] 4 15:35:32 Social History Question Answer Notes LastModified by [employer] Details LastModified Time Tobacco Smoking Status Former Smoker Kristen Roland [facility] 09/29/2019 08:51:51 What Was The Date [...] virus, quadrivalent, preservative 9 completed Kristen Roland [facility] 09/29/2019 09:03:33 Past Encounters Encounter ID Performer Location Encounter Start Date Encounter Closed Date Diagnosis/Indication Diagnosis SNOMED-CT Code Diagnosis ICD10 Code Diagnosis IMO Codes Diagnosis Note [id number] Ranjan Turner [facility] [address] [facility] [place] [address] 09/29/2019 08:57:25 09/29/2019 09:34:10 Adult health examination 142020296 Z00.00 Active or passive immunization 939484367 Z23 [id number] Ranjan Turner [facility] Medicine [address] [facility] [place] [address] 04/04/2020 15:55:55 04/04/2020 16:26:25 Essential hypertension 85241455 I10 will monitor her on metoprolol Anxiety 79086298 F41.9 due to personal life stress with and daughter recently in hospital she has been having a lot of anxiety causing her stress to increase [id number] Ranjan Turner DO [facility] Medicine [address] [facility] [address] 09/19/2022 15:24:15 09/19/2022 16:30:15 Active or passive immunization 987595141 Z23 up to date Adult heal th examination 951933109 Z00.00 BP is excellent [id number] Ranjan Turner [facility] Medicine [address] [facility] [address] 04/07/2024 15:08:27 04/07/2024 16:51:07 Active or passive immunization 321034983 Z23 up to date Adult heal th examination 829733920 Z00.00 BP is excellent Depression screening 171 702755 Z13.31 SCREENING NEGATIVE Herpes labialis 0746359 B00.1 will start suppressio n dose for patient given reoccurrin g Health Concerns Section Related Observation LastModified by Organization Detai ls LastModified Time None Recorded Concern Status LastModified by Organization Details LastModified Time None Recorded Advance Directives Directive None Recorded Payers Insurance Date Sequence Insurance Name Policy Number Policy Valadez Covered Member ID Valadez Member ID Guarantor Name 04/04/2024 1 [facility] [id number] Lainey Ramey [place] [id number] Lainey Ramey [place] Notes Date Note Type [...] BP 120/70 which is excellent ANTOINE OSWALD [address] [place] [address], [address], [facility] 09/29/2019 09:28:18 0 text/html ROS [...] pain, no fatigue, no n/v/d ANTOINE OSWALD [address] [place] [address], [address], [facility] 04/04/2020 16:20:44 3 text/html Annual [...] patient reportsno vision problems. ANTOINE OSWALD [address] [place], [address], [facility] 09/19/2022 16:19:57 4 text/html Annual [...] otherwise needs routine lab work ANTOINE OSWALD [address] [place] [address], [place], [address], [facility] 04/07/2024 16:13:13 OBGyn Episode No OBEpisode recorded.
--- NOTE | 2025-04-20 09:28 | HO.ANESPROP2 ---
Documented by User: Keila White NP 04/20/25 09:30 HPI - Anesthesia Eval Consult details Narrative: 64 yr old female for Colonoscopy with possible Polypectomy [facility] Active Problems Active Problems: All Active Problems (Updated 04/01/25 @ 13:13 by Dick Alberts MD) Colon cancer screening (Acute) Past Medical History Medical History Colon cancer screening Surgical History Surgical History No pertinent past surgical history Social History Social History (Updated 04/01/25 @ 13:10 by Elisa Gan Paulie) Patient Tobacco Use Status: Former Tobacco user Tobacco use type: Cigarette Smoked in Last 30 Days: No Use of substances other than those prescribed or required for medical reasons: No Have you been hit, kicked, punched, or otherwise hurt by someone within the past year? If so, by whom?: No Are you DNR?: No Advance Directives: No Advance Directives Information Provided: Yes Meds Allergies Allergy/AdvReac Type Severity Reaction Status Date / Time No Known Allergies Allergy Verified 04/23/25 06:38 Home Medications ?Medication ?Instructions ?Recorded ?Confirmed ?Last Taken ?Type ylybvayj-urpd-oojc 8 mg-folic 400 1 tab PO DAILY 04/01/25 04/23/25 Unknown History mcg-K 50 mcg-lutein 300 mcg tablet (Centrum Silver Women) cholecalciferol (vitamin D3) 25 25 mcg PO DAILY 04/23/25 04/23/25 Unknown History mcg (1,000 unit) capsule (Vitamin D3) lysine 1,000 mg tablet 1,000 mg 04/23/25 Unknown History Documented by User: Rosangela Mcgovern MD 04/23/25 07:08 [facility] Past Medical History Medical History Colon cancer screening Family History Family history of problems with anesthesia: No Surgical History Surgical History No pertinent past surgical history History of Problems with Anesthesia: No Social History Social History (Updated 04/01/25 @ 13:10 by JAVY Jaime) Patient Tobacco Use Status: Former Tobacco user Tobacco use type: Cigarette Smoked in Last 30 Days: No Use of substances other than those prescribed or required for medical reasons: No Have you been hit, kicked, punched, or otherwise hurt by someone within the past year? If so, by whom?: No Are you DNR?: No Advance Directives: No Advance Directives Information Provided: Yes Meds Allergies Allergy/AdvReac Type Severity Reaction Status Date / Time No Known Allergies Allergy Verified 04/23/25 06:38 Home Medications ?Medication ?Instructions ?Recorded ?Confirmed ?Last Taken ?Type zsilzpfz-gxwq-xlpw 8 mg-folic 400 1 tab PO DAILY 04/01/25 04/23/25 Unknown History mcg-K 50 mcg-lutein 300 mcg tablet (Centrum Silver Women) cholecalciferol (vitamin D3) 25 25 mcg PO DAILY 04/23/25 04/23/25 Unknown History mcg (1,000 unit) capsule (Vitamin D3) lysine 1,000 mg tablet 1,000 mg 04/23/25 Unknown History Exam Airway Mallampati Class: II (molar laterally) TM Dist: >3cm Neck ROM: Full Heart: rrr Lungs: cta Assessment and Plan Assessment Anesthesia Assessment: Anesthesia Plan Discussed and Chart Reviewed Final Anesthetic Review Family History of Problems with Anesthesia: No History of Problems with Anesthesia: No NPO: Yes ASA Class: I Final Preanesthetic Review: No Changes in Pt Med Stat, Meds/Allgs Chart Reviewed and Consent Obtained/Reviewed Patient Risk: Low Procedure Risk: Low Anesthetic Plan Anesthetic Plan: MAC: Disposition: Standard PACU
[2025-04-20 16:12] VITALS: BMI 26.6
[2025-04-23 06:14] VITALS: BMI 26.7
[2025-04-23 06:29] VITALS: BP 113/82; PULSE 82; RESP 16; TEMP 36.8; O2SAT 100
[2025-04-23 06:30] VITALS: BMI 26.7
[2025-04-23] MEDS: Lactated Ringers 1,000 ML 100 ML IVCONT (06:37)
--- NOTE | 2025-04-23 07:30 | MHC.SHP ---
Pre-Procedural Eval Section A - 24 Hr Update-Section A only Date of Service: 04/23/25 The patient is an INPATIENT: No Changes since office visit: No Cold of Flu in the past 2 weeks, No New Medical Problems, No Changes in Medication and No Patient answered all questions The patient has been examined within 24 hours of the surgical procedure. The History & Physical has been completed within 30 days and I have reviewed it.: Yes Section B - Complete if H&P > 30 days Chief Complaint: screening Allergies: Allergies Allergy/AdvReac Type Severity Reaction Status Date / Time No Known Allergies Allergy Verified 04/23/25 06:38 Plan I have reviewed the history and physical and performed a pertinent physical examination on my patient. No changes have occurred unless specified. Time Spent With Patient Time: Total time managing care of this patient today ____ minutes.
[2025-04-23 08:18] VITALS: BP 106/70; PULSE 80; RESP 18; TEMP 36.3; O2SAT 99
--- NOTE | 2025-04-23 08:19 | W.PM.OPN ---
Operative Note Operative Note Date of Service: 04/23/25 Narrative: Preop diagnosis: Colon cancer screening Postop diagnosis:1. area of mucosal erythema, hepatic flexure, biopsied with cold forceps 2. Prominent internal hemorrhoids Procedure: Colonoscopy, mucosal biopsy of the hepatic flexure with cold forceps Surgeon: Dick Alberts MD The patient is a 62 year old female here for screening colonoscopy. She understood the technique of the planned procedure as was the risks, benefits, and alternatives. The patient was brought to the operating room and placed in left lateral decubitus position under monitored anesthesia care. A surgical time-out was done. A full digital rectal exam was done and this did not reveal any significant anal lesions. The tip of the Olympus colonoscope was gently introduced through the anal orifice advanced with insufflation all the way to the cecum. The cecum was intubated. The cecum was identified by visualization of the ileocecal valve as well as the appendiceal orifice. The cecal mucosa was unremarkable. The scope was gradually withdrawn with careful examination of the entire colonic mucosa being done with scope withdrawal. The patient had adequate bowel prep so it was unlikely that any lesion may have been missed. There was note of an area of mucosal redness in the hepatic flexure and this was biopsied with multiple bites of the cold forceps. The rectum was reached and there were no lesions seen. The anal canal was unremarkable except for prominent internal hemorrhoids.. The scope was then withdrawn completely with desufflation. The patient tolerated the procedure well. There were no immediate complications. She falls at average risk for colon cancer so next colonoscopy may be in the next 10 years depending on the path report.
[2025-04-23 08:30] VITALS: BP 120/70; PULSE 78; RESP 18; O2SAT 99
== END 2025-04-23 08:47 | disposition home or self-care (01) ==
PROVIDERS: PCP Internal Medicine; Visit Provider Surgery
PROC: 0DBE8ZZ Excision of Large Intestine, Via Natural or Artificial Opening Endoscopic (ICD-10-PCS; CPT 45380; principal; 2025-04-23 07:30)
DX: Z12.11 Encounter for screening for malignant neoplasm of colon (principal); K64.8 Other hemorrhoids; K63.89 Other specified diseases of intestine
CPT/HCPCS: 45380; 88305; J2003; J2704

== ENCOUNTER → 2025-04-23 05:55 | Outpatient (BNV) | payer OTHER, SELFPAY | PROVIDERS: PCP Internal Medicine; Visit Provider Surgery | DX: Z12.11 Encounter for screening for malignant neoplasm of colon (principal); K63.89 Other specified diseases of intestine; K64.8 Other hemorrhoids | CPT/HCPCS: 45380 ==

== ENCOUNTER 2025-05-17 15:32 | Outpatient (AMB) | payer OTHER, SELFPAY ==
--- NOTE | 2025-05-17 15:32 | A.OFFVIS_ITS ---
Vital Signs 05/17/25 15:38 Height 5 ft 3 in Weight 147 lb 7 oz BMI 26.1 Intake Visit Reasons: s/p colonoscopy Intake Note: Patient presents for colonoscopy follow-up. Pt c/o; no complaints. Soaking Room Operator Required: No Accompanied by: Self / Same As Patient Allergies No Known Allergies Allergy (Verified 05/17/25 15:38) HPI HPI s/p colonoscopy: Details: She had a colonoscopy last April 23, 2025. She tolerated the procedure well. She currently denies significant complaints. [facility] Medical History (Updated 05/17/25 @ 15:36 by Dick Alberts MD) Collagenous colitis Colon cancer screening Surgical History (Updated 05/14/25 @ 12:05 by JAVY Jaime) History of colonoscopy (~04/23/25) No pertinent past surgical history Social History (Updated 04/01/25 @ 13:10 by JAVY Jaime) Patient Tobacco Use Status: Former Tobacco user Tobacco use type: Cigarette Physical Exam Const General: comfortable and no acute distress Resp Effort & Inspection: normal respiratory effort GI Palpation (GI): Soft to palpation, not firm, nontender and no guarding Assessment & Plan Assessment & Plan (1) Collagenous colitis: Code(s): K52.831 - Collagenous colitis Category: Medical Plan: She had 1 patchy area of redness of the mucosa in the colon at the hepatic flexure and biopsy of this suggested collagenous colitis. She does not seem to have any symptoms related to this finding. She does not have any significant diarrhea or chronic abdominal pain. She falls at average risk for colon cancer. Her next colonoscopy may be in the next 10 years It she does have symptoms related to colitis, she should be referred to a casino attendant. She understands the above. Coding Level of Care Code Est Pt Level 2 (52180) Diagnoses Collagenous colitis K52.831
[2025-05-17 15:38] VITALS: BMI 26.1
--- OUTSIDE RECORDS SUMMARY | 2025-05-18 01:09 | XMS_ITS | Continuity of Care Document ---
Author Organization [facility], [facility] Address [address] [place] [address] [place] [address] Assessment No assessment recorded. Plan of Treatment Reminders Order Date Submit Date Provider Last Modified By Organization Details Last Modified Time Details Appointments ANNUAL EXAM 2025 09:00A M DR MIRELES Not available Not available Not available Lab CMP, serum or plasma 2024 025 [facility], [address] [place] [address], [id number], 04/28/2025 09:27:11 CBC w/ auto diff 2024 025 [facility], [address] [place] [address], [id number], 04/28/2025 09:27:11 lipid panel, blood 2024 025 [facility], [address] [place] [address], [id number], 04/28/2025 09:27:11 hemoglobi n A1c, QN, blood 2024 025 [facility], [address] [place] [address], [id number], 04/28/2025 09:27:11 Referral None recorded. Procedures None recorded. Surgeries None recorded. Imaging None recorded. Medication Orders None recorded. Patient TargetsNo targets recorded. Patient InstructionsNo instructions recorded. Reason for Referral None Reported. 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 Procedures Surgical History Date Name Laterality Status Provider Name and Address Organization Details Recorded Time 04/29/20 25 Colonoscopy completed Ranjan Mireles DO [address] [place], [address], [facility] 04/29/2025 14:48:30 12/30/19 25 Most Recent Mammogram completed Shanthi Ackerman [place] [...] 1,000 mg tablet Take by oral route. 04/28 completed Not Available Not Available Not Available acyclovir 400 mg tablet TAKE 1 TABLET [...] completed Not Available Not Available Not Available ketoconazol e 2 % topical cream APPLY IN THE MORNING AND IN THE EVENING FOR DRYNESS AND FLAKING AROUND NOSE AND BETWEEN EYEBROWS active Not Available Not Available No t Available One Daily daily 09/19 completed Not Available Not Available Not Available Vitamin D3 TAKE ONE PO QD 04/28 completed Not Available Not Available Not Available Centrum active Not Available Not Avail able Not Available sodium,pota ssium,mag sulfates 17.5 gram-3.13 gram-1.6 gram oral soln PLEASE SEE ATTACHED FOR DETAILED DIRECTION S active Not Available Not Available No t Available Shingrix (PF) 50 mcg/0.5 mL intramuscul [...] (BMI) Body weight Heart rate Oxygen saturation Systolic And Diastolic Provider Name and Address Organization Details Last Updated DateTime 5 160.02 cm 26.9 kg/m2 71871.0 4 g 78 /min 97 % 128/70 mm[Hg] Adela Connors [facility] 5 09:03:47 Social History Question Answer Notes LastModified by [employer] Details LastModified Time Tobacco Smoking Status [facility] 09/29/2019 08:51:51 What Was The Date Of Your Most Recent Tobacco Screening? 04/28/2025 [email or web address] Information not available 04/28/2025 Sex: Unknown Functional Status Question Answer Note LastModified by [employer] Details LastModified Time Do you or have you ever used any other forms of tobacco or nicotine? No [email or web address] Information not available 09/19/2022 What is your level of alcohol consumption? Moderate 1-2 glasses per day [email or web address] Information not available 09/29/2019 Mental Status None recorded. Family History Relationship Description Onset Age of this Age Resolved Age Notes LastModified by Organization Details LastModified Time Father No current problems or disability [email or web address] Not available 04/28 09:11:42 Mother No current problems or disability [email or web address] Not available 04/28 09:11:42 Medical History No medical history recorded. Gynecological History Statement/Question Response Most Recent Mammogram 12/29/2024 Obstetrics History GPAL:G 0 P 0 0 0 0 Immunizations Vaccine Type Date Status Note Provider Nam e and Address Organization Details Recorded Time influenza, unspecified formulation 5 completed ANTOINE OSWALD [address] [place], [address], [facility] 04/28/2025 09:11:05 Influenza, split virus, quadrivalent, preservative 9 completed [facility] 09/29/2019 09:03:33 Past Encounters Encounter ID Performer Location Encounter Start Date Encounter Closed Date Diagnosis/Indication Diagnosis SNOMED-CT Code Diagnosis ICD10 Code Diagnosis IMO Codes Diagnosis Note [id number] Ranjan Mireles [facility] Internal [facility] [address] [facility] [address] 04/28/2025 08:56:10 04/28/2025 12:59:23 Depression screening 184480121 Z13.31 SCREENING NEGATIVE General ex amination of patient 771482147 Z00.00 141712 BP is excellent Health Concerns Section Related Observation LastModified by Organization Detai ls LastModified Time None Recorded Concern Status LastModified by Organization Details LastModified Time None Recorded Payers Encounter Date Sequence Insurance Name Policy Number Policy Valadez Covered Member ID Valadez Member ID Guarantor Name 04/28/[address] [place] [address] [id number] Jose Caro [id number] Lainey Caro Notes Date Note Type Note Provider Name a nd Address Organization Details Recorded Time 5 text/html Annual WellnessReported by PatientSocial/Behavio ral HistoryFor [...] For additional lifestyle factors, patient reportsno tobacco use,stopped drinking alcohol, anddrinks alcohol (mild-moderate).Menta l Status:For depression risk, patient reportsnever feels sad, empty, or tearful,no loss of interest in activities,no significant changes in weight,no sleep disturbances or insomnia,no agitation,no loss of energy,no feelings of worthlessness or guilt,no thoughts of suicide,no history of depression, andno history of mood disorders.Functional AbilityFor hearing, patient reportsno loss of hearing. For vision, patient reportsno vision problems(wears contacts).ROS as noted in the HPI has eczema > using OTC cortisone 10 ANTOINE [address]D [address] [place] [address], [phone], [facility] 04/28/2025 09:35:14 OBGyn Episode No OBEpisode recorded.
--- OUTSIDE RECORDS SUMMARY | 2025-05-18 01:09 | XMS_ITS | Data Portability ---
Author Organization [facility], Telehealth Patient Home Address [address] [place] [address] Assessment Encounter Date Assessment Date Assessment LastModified [...] Lab CMP, serum or plasma 2024 025 [facility], [address] [place] [address], [id number], 04/28/2025 09:27:11 CBC w/ auto diff 2024 025 [facility], [address] [place] [address], [id number], 04/28/2025 09:27:11 lipid panel, blood 2024 025 [facility], [address] [place] [address], [id number], 04/28/2025 09:27:11 hemoglobi n A1c, QN, blood 2024 025 [facility], [address] [place] [address], [id number], 04/28/2025 09:27:11 CMP, serum or plasma 2023 024 [facility], [address] [place] [address], [address], 04/09/2024 11:53:04 CBC w/ auto diff 2023 024 [facility], [address] [place] [address], [address], 04/07/2024 16:08:32 lipid panel, blood 2023 024 [facility], [address] [place] [address], [address], 04/07/2024 16:08:32 vitamin D, 25-hydrox y, total, serum 2023 024 [facility], [address] [place] [address], [address], 04/07/2024 16:08:32 TSH + free T4, serum 2023 024 [facility], [address] [place] [address], [id number], 04/07/2024 16:08:32 hemoglobi n A1c, QN, blood 2023 024 [facility], [address] [place] [address], [address], 04/07/2024 16:08:32 CBC w/ auto diff 2022 023 [facility], [address] [place] [address], [address], 09/19/2022 15:55:16 CMP, serum or plasma 2022 023 [facility], [address] [place] [address], [address], 09/20/2022 12:40:21 lipid panel, blood 2022 023 [facility], [address] [place] [address], [place], [address], 09/19/2022 16:20:39 urinalysi s, dipstick [email or web address] [facility], [address] [facility], [place], [address], 09/29/2019 09:26:49 CMP, serum or plasma 2019 020 [facility], [address] [place] [address], [place], [address], 09/29/2019 23:16:31 CBC w/ auto diff 2019 020 [facility], [address] [place] [address], [address], 09/29/2019 23:16:31 lipid panel, blood 2019 020 [facility], [address] [place] [address], [address], 09/29/2019 23:16:31 Referral None recorded. Procedures None recorded. Surgeries None recorded. Imaging None recorded. Medication Orders acyclovir 400 mg tablet 2023 024 [id number], [address] [facility], [place], [address], 04/07/2024 16:01:33 Patient TargetsNo targets recorded. Patient InstructionsNo instructions recorded. Reason for Referral None Reported. Results Created Date Observation Date Name Description Value Unit Range Abnormal Flag Note LastModifiedBy Organization Detail LastModifiedTime 09/29/19 20 09/29/2019 urina lysis , dipst ick Leukocytes Trace Not Available [facility] [address] [facility] [address], [place], [address], 09/29/2019 09:04:18 09/29/19 20 09/29/2019 urina lysis , dipst ick Nitrite negati ve Not Available [facility] [address] [facility] [address], [place], [address], 09/29/2019 09:04:18 09/29/19 20 09/29/2019 urina lysis , dipst ick Urobilinogen .2 Not Available [facility] [address] [facility] [address], [place], [address], 09/29/2019 09:04:18 09/29/19 20 09/29/2019 urina lysis , dipst ick Protein Negati ve Not Available [address], [place], [address], 09/29/2019 09:04:18 09/29/19 20 09/29/2019 urina lysis , dipst ick pH 7.0 Not Available [address], [place], [address], 09/29/2019 09:04:18 09/29/19 20 09/29/2019 urina lysis , dipst ick Blood Modera te Not Available [address], [place], [address], 09/29/2019 09:04:18 09/29/19 20 09/29/2019 urina lysis , dipst ick Specific [place] 1.005 Not Available [address], [place], [address], 09/29/2019 09:04:18 09/29/19 20 09/29/2019 urina lysis , dipst ick Ketone Negati ve Not Available [address], [place], [address], 09/29/2019 09:04:18 09/29/19 20 09/29/2019 urina lysis , dipst ick Bilirubin Negati ve Not Available [facility] [address] [facility] [address], [place], [address], 09/29/2019 09:04:18 09/29/19 20 09/29/2019 urina lysis , dipst ick Glucose Negati ve Not Available [facility] [address] [facility] [address], [place], [address], 09/29/2019 09:04:18 09/29/19 20 09/29/2019 urina lysis , dipst ick Appearance Clear Not Available [facility] [address] [facility] [address], [place], [address], 09/29/2019 09:04:18 09/29/19 20 09/29/2019 urina lysis , dipst ick Color Yellow Not Available [facility] [address] [facility] [address], [place], [address], 09/29/2019 09:04:18 04/27/20 20 04/26/2020 MAMMO , diagn ostic , digit al, bilat eral No observ ation record ed. [email or web address] [address] [place], [address], 04/27/2020 09:44:56 06/28/19 22 06/27/2021 MAMMO scree steven, digit al, bilat eral No observ ation record ed. [address] [place], [address], 06/28/2021 12:00:43 10/13/19 23 10/11/2022 MAMMO , robbiee steven, digit al, bilat eral No observ ation record ed. [address] [place], [address], 04/07/2024 15:45:02 12/10/19 24 11/13/2023 MAMMO , scree steven, digit al, bilat eral No observ ation record ed. [email or web address] [address] [place], [address], 04/07/2024 15:45:02 01/06/20 25 12/29/2024 MAMMO , scree steven, digit al, bilat eral No observ ation record ed. [email or web address] [address] [place], [address], 01/05/2025 13:34:50 Result Notes None recorded. Problems Name Problem SNOMED Code Status Onset Date Resolution Date Notes Provider Name and Address Organization Details Recorded Time Anemia 516563953 Active 2022 ANTOINE OSWALD [address] [place] [address], [address], [facility] 3 15:41:34 Herpes labialis 1394077 Active 2023 ANTOINE OSWALD [address] [place] [address], [address], [facility] 4 15:51:26 Problem Notes None recorded. Procedures Surgical History Date Name Laterality Status Provider Name and Address Organization Details Recorded Time 04/29/20 25 Colonoscopy completed Ranjan Mireles DO [address] [place] [address], [address], [facility] 04/29/2025 14:48:30 12/30/19 25 Most Recent Mammogram completed Shanthi Ackerman [facility] 01/05/2025 13:34:28 Imaging Results None [...] Updated DateTime 3 160.02 cm 6.2 kg/m2 56752.7 3 g 80 /min 98 % 118/64 mm[Hg] ANTOINE OSWALD [address] [place], [address] [place] [address] Internal Medicine 3 15:32:50 Date Recorded Body height Body mass index (BMI) Body weight Heart rate Oxygen saturation Systolic And Diastolic Provider Name and Address Organization Details Last Updated DateTime 0 158.75 cm 29 kg/m2 75915.0 9 g 90 /min 99 % 120/70 mm[Hg] Kristen Roland [facility] 0 09:08:04 Date Recorded Body height Heart rate Oxygen saturation Systolic And Diastolic Provider Name and Address Organization Details Last Updated DateTime 04/04/2020 158.75 cm 72 /min 99 % 136/90 mm[Hg] ANTOINE OSWALD [address] [place], [address], [facility] 0 16:01:19 Date Recorded Body height Body mass index (BMI) Body weight Heart rate Oxygen saturation Systolic And Diastolic Provider Name and Address Organization Details Last Updated DateTime 4 160.02 cm 26.5 kg/m2 34383.0 6 g 87 /min 98 % 128/78 mm[Hg] Shanthi Ackerman [facility] 4 15:35:32 Date Recorded Body height Body mass index (BMI) Body weight Heart rate Oxygen saturation Systolic And Diastolic Provider Name and Address Organization Details Last Updated DateTime 5 160.02 cm 26.9 kg/m2 97909.0 4 g 78 /min 97 % 128/70 mm[Hg] Adela Connors [facility] 5 09:03:47 Social History Question Answer Notes LastModified by [employer] Details LastModified Time Tobacco Smoking Status Former Smoker Kristen Roland [facility] 09/29/2019 08:51:51 What Was The Date Of Your Most Recent Tobacco Screening? 04/28/2025 [email or web address] Information not available 04/28/2025 Sex: Unknown Functional Status Question Answer Note LastModified by [employer] Details LastModified Time Do you or have [...] unspecified formulation 5 completed ANTOINE OSWALD [address] [place], [address], [facility] 04/28/2025 09:11:05 Influenza, split virus, quadrivalent, preservative 9 [facility]/29/2019 09:03:33 Past Encounters Encounter ID Performer Location Encounter Start Date Encounter Closed Date Diagnosis/Indication Diagnosis SNOMED-CT Code Diagnosis ICD10 Code Diagnosis IMO Codes Diagnosis Note [id number] Ranjan Mireles [facility] [address] [facility] [address] 09/29/2019 08:57:25 09/29/2019 09:34:10 Adult health examination 722763978 Z00.00 Active or passive immunization 268828847 Z23 [id number] Ranjan Mireles [facility] [address] [facility] [address] 04/04/2020 15:55:55 04/04/2020 16:26:25 Essential hypertension 58552567 I10 will monitor her on metoprolol Anxiety 92286911 F41.9 due to personal life stress with and daughter recently in hospital she has been having a lot of anxiety causing her stress to increase [id number] Ranjan Mireles [facility] [address] [facility] [address] 09/19/2022 15:24:15 09/19/2022 16:30:15 Active or passive immunization 783331615 Z23 up to date Adult [facility] th examination 354916642 Z00.00 BP is excellent [id number] Ranjan Mireles [facility] [address] [facility] [address] 04/07/2024 15:08:27 04/07/2024 16:51:07 Active or passive immunization 328949400 Z23 up to date Adult heal th examination 499644209 Z00.00 BP is excellent Depression screening 171 761125 Z13.31 SCREENING NEGATIVE Herpes labialis 6617694 B00.1 will start suppressio n dose for patient given reoccurrin g [id number] Ranjan Rome Johnny [facility] Medicine [address] [facility] [address] 04/28/2025 08:56:10 04/28/2025 12:59:23 Depression screening 088000615 Z13.31 SCREENING NEGATIVE General ex amination of patient 421875530 Z00.00 063255 BP is excellent Health Concerns Section Related Observation LastModified by Organization Detai ls LastModified Time None Recorded Concern Status LastModified by Organization Details LastModified Time None Recorded Advance Directives Directive None Recorded Payers Insurance Date Sequence Insurance Name Policy Number Policy Valadez Covered Member ID Valadez Member ID Guarantor Name 04/28/2025 1 [facility] [id number] Jose Caro [id number] Lainey Caro Notes Date Note Type Note [...] BP 120/70 which is excellent ANTOINE OSWALD [address] [place], [address], [facility] 09/29/2019 09:28:18 0 text/html ROS [...] pain, no fatigue, no n/v/d ANTOINE OSWALD [address] [place], [address], [facility] 04/04/2020 16:20:44 3 text/html Annual [...] patient reportsno vision problems. ANTOINE OSWALD [address] [place], [address], [facility] 09/19/2022 16:19:57 4 text/html Annual [...] needs routine lab work ANTOINE OSWALD [address] [place] [address], [address], [facility] 04/07/2024 16:13:13 5 text/html Annual WellnessReported by PatientSocial/Behavio ral [...] > using OTC cortisone 10 ANTOINE OSWALD [address] [facility], [place], [address], [facility] 04/28/2025 09:35:14 OBGyn Episode No OBEpisode recorded.
== END 2025-05-17 15:49 | disposition home or self-care (01) ==
LOC: HO.HGS 15:32
PROVIDERS: PCP Internal Medicine; Visit Provider Surgery
DX: K52.831 Collagenous colitis (principal)
CPT/HCPCS: 99212

== ENCOUNTER 2025-05-18 06:12 | Outpatient (REF) | payer OTHER, SELFPAY ==
--- OUTSIDE RECORDS SUMMARY | 2025-05-18 06:14 | XMS_ITS | Patient Health Record ---
Author Organization [facility] Address [address] [place] [address] Care Team Providers Care Director Of In Service Education Name Role Phone PATIENCE MIRELES Primary Care Provider Ioana Shine Unavailable [phone] Allergies No Known Allergies Results Component Value Reference Range Notes PDF Report Reviewed date:12/04/2024 07:37:59 PM Interpretation: Performing Lab:[facility], [facility], Phone - [phone], Director - Jasmyne Notes/Report: Clinical Information:SRC:UC Urine Culture, Routine-[id number] Reviewed date:12/04/2024 07:39:08 PM Interpretation: Performing Lab:[id number], [facility] [place], Phone - [phone], Director - Jasmyne Notes/Report: Clinical Information:SRC:UC Clinical Information:SRC:UC Urine Culture, Routine Final report Result 1 Mixed urogenital courtney 10,000-25,000 colony forming units per mL Urinalysis, Complete-[id number] Reviewed date:12/04/2024 07:39:20 PM Interpretation: Performing Lab:[facility] [place], [employer] [place], Phone - [phone], Director - Jasmyne Notes/Report: Clinical Information:SRC:UC Clinical Information:SRC:UC Specific [place] 1.015 1.005-1.030 pH 6.5 5.0-7.5 Urine-Color Yellow Yellow Appearance Clear Clear WBC Esterase Negative Negative Protein Negative Negative/Trace Glucose Negative Negative Ketones Negative Negative Occult Blood Negative Negative Bilirubin Negative Negative Urobilinogen,Semi-Qn 0.2 0.2-1.0 mg/dL Nitrite, Urine Negative Negative Microscopic Examination Micr oscopic follows if indicated. Microscopic Examination See below: Micr oscopic was indicated and was performed. WBC None seen 0 - 5 /hpf RBC 0-2 0 - 2 /hpf Epithelial Cells (non renal) None seen 0 - 10 /hpf Casts None seen None seen /lpf Bacteria None seen None seen/Few PDF Report Reviewed date:11/18/2024 02:40:39 PM Interpretation: Performing Lab:[facility], [address], [address], [place], Phone - [phone], Director - [facility] Notes/Report: Clinical Information:Vaginal/Cervical, LMP: Men o [id number] Dates / Results....10/25/22 NIL, Neg HPV Other..............Post Menopausal No. of containers..01 ThinPrep Vial [id number] IGP No Culture 30 Plus Reviewed date:11/18/2024 02:56:57 PM Interpretation: Performing Lab:[facility], [address], [address], [place], Phone - [phone], Director - [facility] Notes/Report: Clinical Information:Vaginal/Cervical, LMP: Men o [id number] Dates / Results....10/25/22 NIL, Neg HPV Other..............Post Menopausal No. of containers..01 ThinPrep Vial DIAGNOSIS: NEGATIVE FOR INTRAEPITHELIAL LESION OR MALIGNANCY. THIS SPECIMEN WAS RESCREENED PART OF OUR BODY MAN PROGRAM. Specimen adequacy: Satisfactory for evaluation. Endocervical and/or squamous metaplastic cells (endocervical component) are present. Clinician provided ICD10: Z0 1.419 Performed by: Kylie babb, [employer] [employer] ([employer]) QC reviewed by: Arcadio fenton, [employer] ([employer]) . . Note: The Pap smear is a screening test designed to aid in the detection of premalignant and malignant conditions of the uterine cervix. It is not a diagnostic procedure and should not be used as the sole means of detecting cervical cancer. Both false-positive and false-negative reports do occur. . Test Methodology: This liquid based ThinPrep(R) pap test was screened with the use of an image guided system. HPV Aptima Negative Negative This nucleic acid amplification test detects fourteen high-risk HPV types (16,18,31,33,35,39,45,51,52,56 ,58,59,66,68) without differentiation. HPV Genotype Reflex Criteria not met, HPV Genotype not performed. Urinalysis Reviewed date:11/16/2024 03:55:24 PM Interpretation: Performing Lab: Notes/Report: PH 5.0 PROTEIN Neg GLUCOSE Neg BLOOD Small Reason For Referral No Information Medications Medication SIG (Take, Route, Frequency, Duration) Notes Start Date End Date Status Lysine HCl 1000 MG 1 tablet Orally Once a day Active Centrum Silver Adult 50+ - Orally Active Vitamin D3 1000 UNIT 1 capsule Orally On ce a day Active Social History Tobacco Use: Social History Observation Description Date Details (start date - stop date) Former Smoker NA - NA Sexual History Question Answer Notes Had sex in the past 12 months (vaginal, oral, or anal)? Yes with Men only Prevention strategies discussed: Other AUDIT-C (Standard) Question Answer Notes Did you have a drink contain ing alcohol in the past year? Yes How often did you have a dri nk containing alcohol in the past year? Daily or almost daily (4 points) How many drinks did you have on a typical day when you were drinking in the past year? 1 or 2 drinks (0 point) How often did you have six o r more drinks on one occasion in the past year? Never (0 point) Points 4 Interpretation Positive Tobacco Control (Standard) Question Answer Notes Tobacco use: Former smoker How long has it been since you last smoked? Grea ter than 10 years Section Notes: Marital status: Children: 2 Children Lives with: spouse Occupation: employed full-time Nutrition: average diet Exercise: regular running Sexual activity: monogamous relationship. Contraception: vasectomy .CE: Smoking: Former smoker Tobacco exposure: No smokers in home. .CE: Alcohol: currently drinks alcohol Text messaging while driving: no Sunscreen: yes Illicit drugs: no Seatbelt: yes Problems Problem Type SNOMED Code ICD Code Onset Dates Problem Status W/U Status Risk Notes Problem Menopause (341019309) Menopausal and female climacteric states (N95.1) Active confirmed Problem Postmenopausal atrophic vaginitis (01109126) Postmenopausal atrophic vaginitis (N95.2) Active confirmed Problem Postmenopausal atrophic vaginitis (54997547) Postmenopausal atrophic vaginitis (627.3) Active confirmed Diag Vital Signs Temperature 97.4 degrees Fahrenheit 11/16/2024 Blood pressure diastolic 84 mm Hg 11/16/2024 Height 63 in 11/16/2024 Blood pressure systolic 124 mm Hg 11/16/2024 Weight 156 lbs 11/16/2024 BMI 27.63 kg/m2 11/16/2024 Encounters Encounter Location Date Provider Diagnosis [facility] [address] [address] 11/16/2024 Ioanaknual Wylie Encounter for gynecological examination (general) (routine) without abnormal findings Z01.419 ; Encounter for screening mammogram for malignant neoplasm of breast Z12.31 and Hematuria, unspecified R31.[address] [address] 11/16/2024 Ioanakunal ShepherdWylie Encounter for gynecological examination (general) (routine) without abnormal findings Z01.[address] [address] 11/16/2024 Ioana Wylie Other microscopic hematuria R31.29 Assessments Encounter Date Diagnosis (ICD Code) Assessment Notes Treatment Notes Treatment Clinical Notes Section Notes 11/16/2024 Encounter for gynecological examination (general) (routine) without abnormal findings (ICD-10 - Z01.419) PAP TEST WITH HPV TYPING WAS OBTAINED. 11/16/2024 Encounter for gynecological examination (general) (routine) without abnormal findings (ICD-10 - Z01.419) 11/16/2024 Other microscopic hematuria (ICD-10 - R31.29) 11/16/2024 Encounter for screening mammogram for malignant neoplasm of breast (ICD-10 - Z12.31) REGULAR MAMMOGRAMS AND SBE'S WERE RECOMMENDED. 11/16/2024 Hematuria, unspecified (ICD-10 - R31.9) OFFICIAL UA AND URINE C/S Plan Of Treatment Pending Test Test Name Order Date MAMMOGRAM, SCREENING 10/25/2022 MAMMOGRAM, SCREENING 11/12/2023 MAMMOGRAM, SCREENING 11/16/2024 MAMMOGRAM, SCREENING 09/29/2014 THIN PREP,HPV,EVETTE IF HPV+ (>29YR)(SCRN) 02/11/2018 [facility] Screening 10/25/2022 [facility] M[facility] Screening 11/12/2023 [facility] Mammo Screening 11/16/2024 [facility] Mammo Screening 02/11/2018 Next Appt Details Provider Name:Ioana thrasher, 11/30/2025 08:00:00 AM, [address], [address], [place], [address], Insurance Providers Payer Name Payer Address Payer Phone Subscriber Number Group Number Insured Name Patient Relationship to Insured Coverage Start Date Coverage End Date [facility] [address] [place] [address] [id number] RICHARD CHEN Self - patient is the insured 5 Medical (General) History Medical History History ICD Code Postmenopausal atrophic vaginitis N95.2 Atrophy of vulva N90.5 Stress incontinence (female) (male) N39. 3 Menopausal and female climacteric states N95.1 Surgical History Surgery Date(Month/Year) Endometrial ablation Colonoscopy Breast Biopsy Hospitalization History Reason Date(Month/Year) See Surgical Hx 2 Vaginal Deliveries
[2025-05-18 06:33] LABS: MANUAL DIFF FLAG NO
[2025-05-18 07:27] LABS: Hematocrit 36.8 % (37.0-47.0); Hemoglobin 12.7 g/dl (12.0-16.0); Imm Gran Abs Auto 0.01 X10*3/uL (0.00-0.03); Imm Gran Pct Auto 0.2 % (0.0-0.4); Lymphocytes Absolute Auto 1.9 X10*3/uL (1.2-4.9); Mean Corpuscular HGB Conc 34.5 g/dl (31.0-35.0); Mean Corpuscular Hemoglobin 30.5 pg (27.0-33.0); Mean Corpuscular Volume 88.2 fL (80.0-98.0); NRBC Abs Auto 0.000 X10*3/uL (0.0-0.012); NRBC Pct Auto 0.0 /100WBC (0.0-0.2); Platelet Count 335 X10*3/uL (160-400); Red Blood Count 4.17 X10*6/uL (4.20-5.50); White Blood Count 5.2 X10*3/uL (4.8-10.8)
[2025-05-18 07:55] LABS: Alanine Aminotransferase 33 U/L (0-31); Albumin Level 4.3 g/dL (3.5-5.0); Alkaline Phosphatase 96 U/L (39-117); Anion Gap 11 (12-20); Aspartate Amino Transferase 35 U/L (5-31); Blood Urea Nitrogen 10 mg/dL (9-16); Calcium 9.5 mg/dL (8.4-10.2); Carbon Dioxide 26 mmol/L (22-29); Chloride 102 mmol/L (96-108); Cholesterol 211 mg/dL (<200); Estimated Glomerular Filt Rate > 60; HDL Cholesterol 87 mg/dL (>40); Potassium 4.1 mmol/L (3.3-5.1); Sodium 135 mmol/L (135-145); Total Protein 7.3 g/dL (6.5-8.0); Triglycerides 51 mg/dL (<150)
== END 2025-05-18 06:13 | disposition home or self-care (01) ==
LOC: HO.LAB 06:12
PROVIDERS: PCP Internal Medicine; Visit Provider Physician Assistant
DX: Z00.00 Encounter for general adult medical examination without abnormal findings (principal); Z13.6 Encounter for screening for cardiovascular disorders; Z13.0 Encounter for screening for diseases of the blood and blood-forming organs and certain disorders involving the immune mechanism; Z13.1 Encounter for screening for diabetes mellitus
CPT/HCPCS: 36415; 80053; 80061; 83036; 85025